=== PATIENT | female | born 1945 | race Caucasian/White ===

== ENCOUNTER 2021-05-29 13:27 | Outpatient (REF) | payer MEDICARE, SELFPAY | END 2021-05-29 13:28 | disposition home or self-care (01) | LOC: HO.SCI 13:27 | DX: Z13.89 Encounter for screening for other disorder (principal) ==

== ENCOUNTER → 2021-08-29 13:03 | Outpatient (REF) | payer MEDICARE, SELFPAY | LOC: HO.SL 13:03 | PROVIDERS: PCP Pediatrics; Visit Provider Pediatrics | DX: G47.33 Obstructive sleep apnea (adult) (pediatric) (principal); F51.04 Psychophysiologic insomnia | CPT/HCPCS: 95806 ==